=== PATIENT | male | born 1940 | race Caucasian/White ===

== ENCOUNTER 2016-07-05 17:31 | Inpatient (IN) | payer OTHER ==
[~2016-07-05] VITALS: Ht 175.3 cm; Wt 58.3 kg
--- NOTE | 2016-07-05 18:28 | DIAGNOSTIC IMAGING REPORT ---
PROCEDURE: XR TIBIA AND FIBULA - RIGHT INDICATION: TRAUMA/INJURY TECHNIQUE: AP and lateral views. COMPARISON: None. FINDINGS: Overlying splint obscures some of the detail. There is a comminuted spiral oblique fracture of the mid and distal tibia which extends towards the tibial plafond. This is associated with one bone width of lateral and anterior displacement, and moderate valgus angulation. There is a severely comminuted oblique fracture of the left proximal fibular shaft with moderate displacement, and anterior valgus angulation. IMPRESSION: 1. Severely comminuted and displaced fractures of the right tibia and fibular shafts.
--- NOTE | 2016-07-05 20:12 | ED ORDER SUMMARY ---
..... Patient: GUILLERMO LENNON OrderSheet [facility] VisitID: [id number] [place] [address] 75y, M Registration Date/Time: 07/05/2016 ORDER SHEET Weight: 55.3 kg (stated) Allergies: Azithromycin, Cinacalcet HCl, Cipro, Clarithromycin, Erythromycin, Levofloxacin, Linezolid, Neomycin Sulfate, Polymyxin B Sulfate, Sulfamethoxazole, Trimethoprim GENERAL ORDERS: Tibia/Fibula Right Urgent (18:06 07/05/2016 Lonnie HARDY) (Ack 18:08 NHouse ER Tech1) (18:19 EHassan R.N.) CBC w Diff Urgent (18:06 07/05/2016 Lonnie HARDY) (Ack 18:08 NHouse ER Tech1) (18:19 EHassaalli R.N.) CMP Urgent (18:06 07/05/2016 Lonnie HARDY) (Ack 18:08 NHouse ER Tech1) (18:19 EHassan R.N.) Splint (LE) (Right) (Che) (Fiberglass) (19:09 07/05/2016 Lonnie HARDY) (Ack 19:47 AMcQuoid ER Tech1) (20:14 AMcQuoid ER Tech1) EKG - ER Stat (19:10 07/05/2016 Lonnie HARDY) (19:20 BHARGAVassaalli R.N.) PT with INR Urgent (20:12 07/05/2016 Lonnie HARDY) (20:14 AMcQuoid ER Tech1) MEDICATION ORDERS: IV FLUIDS: IV NS : initial bolus 500 mL (1000 mL/hr), then 100 mL/hr (NOW) (18:05 07/05/2016 Lonnie HARDY) (18:55 BHARGAVassaalli R.N.) Dilaudid IV 1 mg (HIGH ALERT MEDICATION, NOW) (18:05 07/05/2016 Lonnie HARDY) (18:18 BHARGAVassaalli R.N.) Dilaudid IV 1 mg (HIGH ALERT MEDICATION, NOW) (18:57 07/05/2016 Lonnie HARDY) (19:04 Deedee R.N.) Dilaudid IV 2 mg (HIGH ALERT MEDICATION, NOW) (19:34 07/05/2016 Lonnie HARDY) (19:42 Deedee Lei) Dilaudid IV 1 mg (HIGH ALERT MEDICATION, NOW) (20:05 07/05/2016 Lonnie HARDY) (20:16 Deedee Lei) ORDER SHEET NOTES: [Electronically signed by Tami Moyer R.N. (21:31 07/05/2016)] [Electronically signed by Tami Moyer R.N. (22:35 07/05/2016)] [Electronically signed by Tami Moyer R.N. (22:41 07/05/2016)] [Electronically signed by Tami Moyer R.N. (22:42 07/05/2016)] [Electronically signed by Tami Moyer R.N. (22:44 07/05/2016)] [Electronically signed by Yuridia Gonzalez MD (08:16 07/07/2016)] [Electronically locked/signed by Tami Moyer R.N. (21:31 07/05/2016)]
--- NOTE | 2016-07-05 20:12 | ED NURSING NOTES ---
Clinical Report - Nurses [facility] [address] [place] [address] 07/05/2016 17:33 Patient: NGHIA LENNON TRIAGE Weight: 55.3 kg stated. Height/Length: 68 inches Per Patient. BMI: 18.5. --18:11 Tami Moyer R.N. Medications Aspirin 81 mg, daily. AzaTHIOprine Oral. Calcium Acetate Oral. Cholecalciferol Oral. Clobetasol Propionate External. Enalapril Maleate Oral. Isosorbide Dinitrate Sublingual. Latanoprost Ophthalmic. Levothroid Oral. Metoprolol Succinate Oral. Nitroglycerin Translingual. Omeprazole Oral. Ondansetron HCl Oral. OxyCODONE HCl Oral 5 mg, 6 hrs as needed. PredniSONE Oral 5 mg, daily. 1 Oral. Pt not clear of all meds that he's on. Reglan Oral. Rosuvastatin Calcium Oral. Tacrolimus Oral. Tamsulosin HCl Oral. Triamcinolone Acetonide External. --18:08 Tami Moyer R.N. Dronabinol Oral (Capsule 2.5 mg), bid. --19:10 Tami Moyer R.N. Torsemide Oral (Tablet 20 mg) 2 tablets, daily. --19:10 Tami Moyer R.N. Gabapentin Oral 100 mg, daily. --19:11 Tami Moyer R.N. Tacrolimus Oral (Capsule 0.5 mg) 1 capsule, bid. --19:13 Tami Moyer R.N. AzaTHIOprine Oral (Tablet 50 mg) 1 tablet, daily. --19:14 Tami Moyer R.N. AmLODIPine Besylate Oral (Tablet 5 mg), 2x a day. --19:14 Tami Moyer R.N. Finasteride Oral 5 mg, daily. --19:15 Tami Moyer R.N. Furosemide Oral 20 mg, daily as needed. --19:16 Moyer, Tami, R.N. Carvedilol Oral (Tablet 6.25 mg) 1 tablet, bid. --19:17 Tami Moyer R.N. Plus Iron Oral 27 mg, daily. --19:18 Tami Moyer R.N. Cranberry Oral 4200mg, daily. --19:19 Tami Moyer R.N. Prevagen Oral. --19:19 Tami Moyer R.N. The following entry was struck and corrected by Tami Moyer R.N., 19:12 (07/05/16) Reason for correction - other(correction). <<STRICKEN ENTRY-- OxyCODONE HCl Oral. --18:08 Tami Moyer R.N. --END STRIKE>> The following entry was struck and corrected by Tami Moyer R.N., 19:11 (07/05/16) Reason for correction - other(correction). <<STRICKEN ENTRY-- PredniSONE Oral. --18:08 Tami Moyer R.N. --END STRIKE>>. Medication/allergy information source: the patient. --18:48 Tami Moyer R.N. Allergies Azithromycin. Cinacalcet HCl. Cipro. Clarithromycin. Erythromycin. Levofloxacin. Linezolid. Neomycin Sulfate. Polymyxin B Sulfate. Sulfamethoxazole. Trimethoprim. --18:08 Tami Moyer R.N. PROBLEMS: Laceration. Contusion. Cellulitis. Kidney Transplant. Angina. Peripheral Neuropathy. Degenerative Joint Disease. Heart Transplant. Hyperkalemia. Immunizations. Basal cell cancer of right arm. Hyperlipidemia. Chronic pain. Chronic Pain. Hypertension. --18:09 Tami Moyer R.N. ADDITIONAL SURGERIES: Cholecystectomy. Gallbladder Surgery. Heart Transplant. Kidney Transplant. Prostatectomy. --18:09 Tami Moyer R.N. Major Trauma History Triage time 1750 PM. Arrived by private vehicle. Historian: patient and family. Acuity: LEVEL 2. Mechanism of injury: FALL while walking and landed on a concrete surface; tripped. Location of injuries: right leg. Happened 2 hours. No gunshot wound or stab wound. Trauma activation: Modified Trauma Activation. Pre-hospital notification of patient arrival was not received. as per prototcol. PAST MEDICAL HX: Tetanus status: up-to-date. SOCIAL HX: Former smoker, end date 1983. Occasional alcohol use. No drug use. No recent travel. Patient is retired. No known contact with a sick individual. ( Pt and daughter state walking down the street this afternoon at around 5pm and tripped and fell, pt denies hitting his head or any part of his body, pt states "it snapped but did not hit any sidewalk". Pt wheeled into the ED as per daughter pt was lifted by to the car took a oxy 5 mg before arriving to ED.). Identification band on patient. FALL RISK ASSESSMENT: Fall risk assessment completed. No fall risk identified. NUTRITIONAL RISK ASSESSMENT: The nutritional risk assessment revealed no deficiencies. The nutritional risk assessment revealed no deficiencies. FUNCTIONAL ASSESSMENT: Functional assessment: no impairments noted. Functional assessment: no impairments noted. LEARNING NEEDS ASSESSMENT: The learning needs assessment revealed no barriers. SKIN INTEGRITY ASSESSMENT: Skin integrity risk assessment completed. No skin integrity risk identified. --18:48 Tami Moyer R.N. Primary Survey: Alert. No acute distress. Airway patent. Breathing spontaneous. Pulses diminished. Pulses: right popliteal 1+, left popliteal 3+, right dorsalis pedis 2+, right posterior tibial 1+ and left posterior tibial 3+. Skin color within normal limits and warm and dry to touch. Pupillary exam: pupils are equal, round, and reactive to light. SEPSIS SCREEN: Sepsis Screen. Negative (no infection suspected/documented). --18:48 Tami Moyer R.N. 17:52 07/05/16. BP: 117/77 (small adult cuff) taken on the left arm, via an automated monitor, while sitting. HR: 71. RR: 18. O2 saturation: 97% on room air. Temp: 98.3 F (oral). Pain level now: 11/22. --18:48 Tami Moyer R.N. PHYSICAL ASSESSMENT Secondary Survey: GENERAL / NEURO / PSYCH: Alert. Oriented X 4. Appears in pain. HEENT: Head exam within normal limits. Facial exam within normal limits. Eye exam within normal limits. Ear exam within normal limits. Mouth within normal limits upon inspection. Neck exam within normal limits. RESPIRATORY: Respirations not labored. Decreased breath sounds in the bases bilaterally. Breath sounds within normal limits. CHEST / CVS: Chest exam within normal limits. Normal sinus rhythm noted. Pulses: right popliteal 1+, right dorsalis pedis 1+ and right posterior tibial 1+. Capillary refill is greater than 4 seconds. ABD / PELVIS / GI / : Abdomen soft and nontender. Pelvis is stable. EXTREMITIES: Sensory deficit over the right foot, right great toe, right second toe, right third toe, right fourth toe and right fifth toe. SKIN: Skin color pale. --18:53 Tami Moyer R.N. 18:00 07/05/16. BP: 98/73. HR: 67. RR: 15. O2 saturation: 98% on room air. Pain level now: 11/22. --18:53 Tami Moyer R.N. EXTREMITIES: ( Pt noted to have his tib/fib dangling, stabilized with a splinter prior to pt lifted to stretcher safely. Audible Doppler pulses, noted that cap refill is greater than 3. Will monitor). --18:55 Tami Moyer R.N. NURSING PROGRESS NOTES 17:53 07/05/2016 Site #1 started via IV in the right antecubital space with an 20g angiocath; one attempt. Blood drawn: rainbow set. Labeled in the presence of the patient and sent to the lab. --18:18 Tami Moyer R.N. 18:18 07/05/2016 Dilaudid (HYDROmorphone HCl PF) IVP 1 mg given over 1 minute(s) via site #1. Allergies verified, confirmed 5 rights and sedative warning given to the patient and patient's family. IV patency established. IV site checked: no pain, redness, or swelling. IV flushed thoroughly pre- and post-medication administration. IVP given by RN. --18:18 Tami Moyer R.N. 18:30 07/05/2016 Started bag #1 1000 mL IV Fluids IV NS (Saline); at 500 mL/hr over 1 hour(s) via site #1 via IV pump. Allergies verified and confirmed 5 rights. IV patency established. IV site checked: no pain, redness, or swelling. IV flushed thoroughly pre- and post-medication administration. --18:55 Tami Moyer R.N. The initial plan of care for this patient has been created This plan of care was discussed with the patient. Patient ID band checked for patient name, birthdate and medical record number: patient confirmed. Blood samples drawn from the right antecubital space peripheral IV site by nurse per protocol ; labeled in presence of the patient and sent to lab: rainbow set. Reassurance given. Two patient identifiers checked. Call light placed in reach. Side rails up x 1. Bed placed in lowest position. Brakes of bed on. --19:03 Tami Moyer R.N. 19:03 07/05/16. BP: 121/83 (small adult cuff) taken on the right arm, via an automated monitor, while lying. HR: 68. RR: 11. O2 saturation: 95% on nasal cannula at 2 liters/minute. Pain level now: 11/22. --19:04 Tami Moyer R.N. Cardiac rhythm: normal sinus rhythm. Valentin Coma Scale: 15- eyes open spontaneously (4); best verbal response- oriented x 4 (5); best motor response- obeys commands (6). --19:04 Tami Moyer R.N. 19:04 07/05/2016 Dilaudid (HYDROmorphone HCl PF) IVP 1 mg given over 30 second(s) via site #1. Allergies verified, confirmed 5 rights and sedative warning given to the patient and patient's family. IV patency established. IV site checked: no pain, redness, or swelling. IV flushed thoroughly pre- and post-medication administration. IVP given by RN. --19:04 Tami Moyer R.N. 18:30 07/05/16. BP: 100/74 (small adult cuff) taken on the left arm, via an automated monitor, while lying. HR: 68. RR: 14. O2 saturation: 99% on nasal cannula at 2 liters/minute. Temp: 98.8 F (oral). Pain level now: 11/22. --19:07 Tami Moyer R.N. Cardiac rhythm: normal sinus rhythm. feed mill tender, pulse oximeter and NIBP monitor placed on patient; monitor alarms on. Reassurance given. Reassessment after fluids administered and medication administered. He is calm and has had no adverse reaction. Overall patient status is the same- he states feels the same. --19:07 Tami Moyer R.N. ( Pt family and nghia would like to be transfer to "where my docs are at" Dr. Gonzalez aware. Dilaudid given as ordered.). --19:08 Tami Moyer R.N. 18:55 07/05/2016 Dilaudid IVP Response: no adverse reaction symptoms are the same. The patient feels the same. --19:20 Tami Moyer R.N. 19:05 07/05/2016 IV Fluids IV NS via IV site #1 Rate Changed: bag #1 decreased to 100 mL/hr via IV pump. IV patency established. IV site checked: no pain, redness, or swelling. IV flushed thoroughly. Confirmed 5 Rights. --19:20 Tami Moyer R.N. 19:20 07/05/2016 Dilaudid IVP Response: no adverse reaction symptoms are the same. The patient feels the same. --19:20 Tami Moyer R.N. 19:42 07/05/2016 Dilaudid (HYDROmorphone HCl PF) IVP 2 mg given over 1 minute(s) via site #1. Allergies verified, confirmed 5 rights and sedative warning given to the patient and patient's family. IV patency established. IV site checked: no pain, redness, or swelling. IV flushed thoroughly pre- and post-medication administration. IVP given by RN. --19:42 Tami Moyer R.N. 20:02 07/05/2016 Dilaudid IVP Response: no adverse reaction symptoms are the same. The patient feels the same. --20:17 Tami Moyer R.N. 20:06 07/05/2016 Dilaudid (HYDROmorphone HCl PF) IVP 1 mg given over 30 second(s) via site #1. Allergies verified, confirmed 5 rights and sedative warning given to the patient and patient's family. IV patency established. IV site checked: no pain, redness, or swelling. IV flushed thoroughly pre- and post-medication administration. IVP given by RN. --20:16 Tami Moyer R.N. 20:17 07/05/2016 Site #1 reassessed; patent, infusing well and no signs of infection or infiltration. Good blood return present. --20:17 Tami Moyer R.N. Cardiac rhythm: normal sinus rhythm. Reassurance given. Reassessment after oxygen and fluids administered. He has had no adverse reaction. Overall patient status is the same- he states feels better. ( Right leg stabilized with a Che splint, pt tolerated well with pain meds on board. VSS. O2 infusing, now eating. Pt opted to stay for surgery in the AM. Waiting on bed assignment. Family at bedside and updated. Comfort provided and emotional support). Call light placed in reach. Side rails up x 1. --20:19 Tami Moyer R.N. 20:17 07/05/16. BP: 128/59. HR: 69. RR: 14. O2 saturation: 98% on nasal cannula at 2 liters/minute. Pain level now: 08/22. --20:19 Tami Moyer R.N. 20:45 07/05/2016 Site #1 reassessed; patent, infusing well and no signs of infection or infiltration. Good blood return present. --20:45 Tami Moyer R.N. 20:43 07/05/16. BP: 99/53 (small adult cuff) taken on the left arm, via an automated monitor, while lying. HR: 66. RR: 13. O2 saturation: 95% on nasal cannula at 2 liters/minute. Temp: 98.8 F. Pain level now: 10/23. --20:48 Tami Moyer R.N. Reassessment after oxygen and fluids administered and medication administered. He is calm and has had no adverse reaction. Overall patient status is improved- he states feels the same. ( Audible doppler pulses, cap refill maintaining at 3). --20:48 Tami Moyer R.N. ( Called acute care x2 to give report, Vinh now is not taking the patient, waiting for Khushi RN to call back for report. Pt is stable and waiting). --21:12 Tami Moyer R.N. 21:26 07/05/2016 Dilaudid IVP Response: no adverse reaction symptoms have improved the patient feels better. --21:31 Tami Moyer R.N. 21:31 07/05/2016 IV Fluids IV NS Discontinued: bag #1 completed upon admission. Total amount infused: 1000 mL. IV patency established. IV site checked: no pain, redness, or swelling. IV flushed thoroughly. --21:31 Tami Moyer R.N. DISPOSITION / DISCHARGE Cardiac rhythm: normal sinus rhythm. Departure time: 2130 PM. Condition at departure: stable. The goals identified in the patient's plan of care were met. Transported via stretcher by transport team. Report was given to a nurse via a phone call. Report included patient's care, treatment, medications, reviewed medication reconcilliation, and condition (including any recent changes or anticipated changes). All questions were answered. Report was acknowledged and care was transferred. (ALINA Urban). --21:30 Tami Moyer R.N. 21:15 07/05/16. BP: 102/58. HR: 70. RR: 16. O2 saturation: 96% on nasal cannula at 2 liters/minute. Temp: 98.8 F (oral). Pain level now: 09/22. --21:30 Tami Moyer R.N. Locked/Released at 07/05/2016 22:44 by Tami Moyer R.N.
--- NOTE | 2016-07-05 20:12 | ED ORDER SUMMARY ---
..... Patient: GUILLERMO LENNON OrderSheet [facility] VisitID: [id number] [place] [address] 75y, M Registration Date/Time: 07/05/2016 ORDER SHEET Weight: 55.3 kg (stated) Allergies: Azithromycin, Cinacalcet HCl, Cipro, Clarithromycin, Erythromycin, Levofloxacin, Linezolid, Neomycin Sulfate, Polymyxin B Sulfate, Sulfamethoxazole, Trimethoprim GENERAL ORDERS: Tibia/Fibula Right Urgent (18:06 07/05/2016 Lonnie HARDY) (Ack 18:08 NHouse ER Tech1) (18:19 EHassan R.N.) CBC w Diff Urgent (18:06 07/05/2016 Lonnie HARDY) (Ack 18:08 NHouse ER Tech1) (18:19 EHassaalli R.N.) CMP Urgent (18:06 07/05/2016 Lonnie HARDY) (Ack 18:08 NHouse ER Tech1) (18:19 EHassan R.N.) Splint (LE) (Right) (Che) (Fiberglass) (19:09 07/05/2016 Lonnie HARDY) (Ack 19:47 AMcQuoid ER Tech1) (20:14 AMcQuoid ER Tech1) EKG - ER Stat (19:10 07/05/2016 Lonnie HARDY) (19:20 BHARGAVassaalli R.N.) PT with INR Urgent (20:12 07/05/2016 Lonnie HARDY) (20:14 AMcQuoid ER Tech1) MEDICATION ORDERS: IV FLUIDS: IV NS : initial bolus 500 mL (1000 mL/hr), then 100 mL/hr (NOW) (18:05 07/05/2016 Lonnie HARDY) (18:55 BHARGAVassaalli R.N.) Dilaudid IV 1 mg (HIGH ALERT MEDICATION, NOW) (18:05 07/05/2016 Lonnie HARDY) (18:18 BHARGAVassaalli R.N.) Dilaudid IV 1 mg (HIGH ALERT MEDICATION, NOW) (18:57 07/05/2016 Lonnie HARDY) (19:04 Deedee R.N.) Dilaudid IV 2 mg (HIGH ALERT MEDICATION, NOW) (19:34 07/05/2016 Lonnie HARDY) (19:42 Deedee Lei) Dilaudid IV 1 mg (HIGH ALERT MEDICATION, NOW) (20:05 07/05/2016 Lonnie HARDY) (20:16 Deedee Lei) ORDER SHEET NOTES: [Electronically signed by Tami Moyer R.N. (21:31 07/05/2016)] [Electronically signed by Tami Moyer R.N. (22:35 07/05/2016)] [Electronically signed by Tami Moyer R.N. (22:41 07/05/2016)] [Electronically signed by Tami Moyer R.N. (22:42 07/05/2016)] [Electronically signed by Tami Moyer R.N. (22:44 07/05/2016)] [Electronically signed by Yuridia Gonzalez MD (08:16 07/07/2016)] [Electronically locked/signed by Tami Moyer R.N. (21:31 07/05/2016)]
--- NOTE | 2016-07-05 20:12 | ED CLINICAL REPORT ---
Clinical Report - Physicians/Mid Levels [facility] [address] [place] [address] 07/05/2016 17:33 Patient: GUILLERMO LENNON Time Seen: 17:54. Arrived- By private vehicle. Historian- patient. HISTORY OF PRESENT ILLNESS Chief Complaint: Injury to right leg. The injury happened about 2 hours ago. Fell (patient was walking down the sidewalk when he tripped and fell. However he states he did not strike his leg on anything, but that the leg snapped as his toe caught on the sidewalk and he was going down. Patient denies any other injuries.). Occurred on a street. Patient is experiencing severe pain. No other injury. REVIEW OF SYSTEMS The patient complains of pain on weight bearing. He cannot bear weight. He has had swelling. No tingling, weakness, numbness, suspected foreign body or skin laceration. All systems otherwise negative, except as recorded above. PAST HISTORY Problems: Near Syncope. Tetanus Status. Kidney Transplant. Angina. Peripheral Neuropathy. Degenerative Joint Disease. Heart Transplant. Hyperkalemia. Immunizations. Basal cell cancer of right arm. Hyperlipidemia. Chronic Pain. Hypertension. Additional Surgeries: Cholecystectomy. Gallbladder Surgery. Heart Transplant. Prostatectomy. Medications: Prevagen Oral. Cranberry Oral 4200mg, daily. Plus Iron Oral 27 mg, daily. Carvedilol Oral (Tablet 6.25 mg) 1 tablet, bid. Furosemide Oral 20 mg, daily as needed. Finasteride Oral 5 mg, daily. AmLODIPine Besylate Oral (Tablet 5 mg), 2x a day. AzaTHIOprine Oral (Tablet 50 mg) 1 tablet, daily. Tacrolimus Oral (Capsule 0.5 mg) 1 capsule, bid. Gabapentin Oral 100 mg, daily. Torsemide Oral (Tablet 20 mg) 2 tablets, daily. Dronabinol Oral (Capsule 2.5 mg), bid. Aspirin 81 mg, daily. AzaTHIOprine Oral. Calcium Acetate Oral. Cholecalciferol Oral. Clobetasol Propionate External. Enalapril Maleate Oral. Isosorbide Dinitrate Sublingual. Latanoprost Ophthalmic. Levothroid Oral. Metoprolol Succinate Oral. Nitroglycerin Translingual. Omeprazole Oral. Ondansetron HCl Oral. OxyCODONE HCl Oral 5 mg, 6 hrs as needed. PredniSONE Oral 5 mg, daily. 1 Oral. Pt not clear of all meds that he's on. Reglan Oral. Rosuvastatin Calcium Oral. Tacrolimus Oral. Tamsulosin HCl Oral. Triamcinolone Acetonide External. Allergies: Azithromycin. Cinacalcet HCl. Cipro. Clarithromycin. Erythromycin. Levofloxacin. Linezolid. Neomycin Sulfate. Polymyxin B Sulfate. Sulfamethoxazole. Trimethoprim. SOCIAL HISTORY Former smoker. No alcohol use or drug use. ADDITIONAL NOTES The nursing notes have been reviewed. PHYSICAL EXAM Vital Signs: 07/05/2016 17:52 BP: 117/77. HR: 71. RR: 18. O2 saturation: 97%. Temp: 98.3 F. Pain level now: 10. Have been reviewed. Appearance: Alert. Oriented X3. No acute distress. (atient appears uncomfortable.). Head: Head atraumatic. Eyes: Pupils equal, round and reactive to light. Eyes normal inspection. ENT: Nose normal. Neck: Normal inspection. CVS: Pulses normal. Respiratory: No respiratory distress. Abdomen: No visible injury. Back: ROM normal. Skin: Skin intact. Skin warm and dry. Normal skin color. Normal skin turgor. Extremities: Right leg: severe tenderness and moderate swelling and deformity consistent with a tibia and fibula fracture located in the mid leg. Limited weight bearing secondary to pain. Neurovascular intact distally. (Patient has an unstable mid shaft of his tibia and fibula on the right.). No laceration, abrasion, ecchymosis, puncture wound or foreign body. (Patient has intact dorsalis pedis and posterior tibial pulses by Doppler.). Gait: Gait not tested due to pain. Neuro, Vascular and Tendons: Vascular status intact. Sensation intact. Motor intact. Tendon function intact. Neuro: Oriented X 3. No motor deficit. No sensory deficit. LABS, X-RAYS, AND EKG EKG: EKG time: (19:20). No acute process. Normal sinus rhythm. Rate: 67. Normal P waves. Normal GELA. RBBB. Left axis deviation. Normal ST and T waves, QT and QTc. Prior EKG unavailable. The study has been interpreted contemporaneously by me. The study has been independently viewed by me. The EKG appears to be a good tracing. I agree with and confirm the computer reading of the EKG. Rt Tib/Fib X-ray: Soft tissues normal. Joint spaces normal. No air in the soft tissue or foreign body. Moderately displaced, comminuted fracture of the mid right tibia. No open fracture of the right tibia. Comminuted fracture of the mid right fibula. No open fracture of the right fibula. Views: AP and lateral. Technique: good. The X-rays were independently viewed by me and interpreted contemporaneously by me. Prior films were not available for comparison. Laboratory Tests: CBC w Diff: (POLLO: 07/05/2016 18:50) ( MsgRcvd 07/05/2016 19:30) Final results Test Result Flag Units (Reference) WHITE BLOOD COUNT 14.3 H K/uL (4.5-11.5) RED BLOOD COUNT 4.25 L M/uL (4.50-5.90) HEMOGLOBIN 12.7 L gm/dL (13.5-17.5) HEMATOCRIT 38.2 L % (41.0-53.0) MEAN CELL VOLUME 90 fL (80-100) MEAN CORPUSCULAR HGB 30 pg (26-34) MEAN CORPUSCULAR HGB CONC 33 g/dL (31-37) RED CELL DISTRIBUTION WIDTH 14.6 % (11.6-14.8) PLATELET COUNT 321 K/uL (150-400) NEUTROPHIL % 83.3 H % (50-75) LYMPH % 13.4 L % (25-40) MONO % 3.0 % (3-14) EOSINOPHIL % 0.1 % (0-4) BASOPHIL % 0.2 % (0-2) CMP: (POLLO: 07/05/2016 18:50) ( MsgRcvd 07/05/2016 19:38) Final results Test Result Flag Units (Reference) GLUCOSE 156 H mg/dL (70-110) BUN 63 H mg/dL (7-18) CREATININE 2.5 H mg/dL (0.6-1.3) Estimated GFR 27.04 mL/min Estimated GFR- 32.77 mL/min Note: Persistent reduction over 3 months in eGFR<60 mL/min/1.73 m2 defines CKD. Patients with eGFR values>=60 mL/min/1.73 m2 may also have CKD if evidence ofpersistent proteinuria. Additional information may be foundat [email or web address]. SODIUM 134 L mmol/L (136-145) POTASSIUM 4.5 mmol/L (3.5-5.1) CHLORIDE 96 L mmol/L (98-107) CARBON DIOXIDE 26 mmol/L (21-32) CALCIUM 7.9 L mg/dL (8.5-10.1) TOTAL PROTEIN 8.0 g/dL (6.4-8.2) ALBUMIN 3.2 L g/dL (3.3-5.0) BILIRUBIN, TOTAL 0.9 mg/dL (0.0-1.0) ALKALINE PHOSPHATASE 87 U/L (46-116) AST (SGOT) 20 U/L (15-37) ALT (SGPT) 24 U/L (12-78) . Pulse Oximetry: 07/05/2016 17:52 O2 saturation: 97%. (FIO2 - room air). Interpretation: normal. PROGRESS AND PROCEDURES Splint Application: Short leg and stirrup fiberglass splint applied to right foot, ankle and lower leg. Splint applied by tech with direct supervision by me and the ED physician. Reassessed extremity following splint application. Neurovascular intact. Course of Care: The patient was evaluated by me immediately upon arrival in the emergency department. I did place him in a posterior mold splint initially just to stabilize his leg, and to maintain his intact neurovascular status. The patient was found to have a severe midshaft fracture of both bones of hislower leg, and as such I did speak with Dr. Gustafson, who was on-call for orthopedics. He did state that he would be able to fix thefracture operatively, but he would like the patient to be admitted to the hospitalist service, given his extensive medical history. The films were made available for Dr. Gustafson to view. Dr. Mc did agree to admit the patient primarily. Patient was given doses of Dilaudid IV. Once the x-ray was done a bulky Che splint was placed. Patient did have concerns that he is a Religion and does not want to receive blood during surgery, and requested that I speak with the surgeon to make sure that the surgeon felt comfortable with this. I did speak with Dr. Velazquez about it and he stated he would feel completely comfortable. Discussed case with health care provider (Janay/antony). Reviewed test results and need for additional work-up. Agreed upon treatment plan and decision to admit. Health care provider will see patient in hospital. Discussed case with hospitalist, (Jesusita). Reviewed test results and need for additional work-up. Agreed upon treatment plan and decision to admit. Health care provider will see patient in hospital. Patient and family counseled in person regarding the patient's stable condition, test results, diagnosis and need for admission and surgery. Old medical records reviewed. Disposition: Admitted to Acute Care. Condition: stable and serious and improved. CLINICAL IMPRESSION Closed displaced spiral, comminuted fracture of the shaft of the right tibia. No angulated fracture of the tibia. Closed displaced spiral, comminuted fracture of the shaft of the right fibula. No intraarticular fracture of the fibula. (Electronically signed by Yuridia Gonzalez MD 07/07/2016 8:16)
[2016-07-05] MEDS ORDERED: ASPIRIN ADULT L81 M2 PO (21:37)
[2016-07-05] MEDS ORDERED: AZATHIOPRINE50 MG PO (21:38)
[2016-07-05] MEDS ORDERED: PHOSLO667 MG (21:39)
[2016-07-05] MEDS ORDERED: VITAMIN D2400 UNIT PO (21:40)
[2016-07-05] MEDS ORDERED: CLOBETASOL PRO0.051 (21:41)
[2016-07-05] MEDS ORDERED: ENALAPRIL MALE2.5 MG PO (21:42)
[2016-07-05] MEDS ORDERED: ISOSORBIDE DINI10 MG PO (21:43)
[2016-07-05 21:44] VITALS: BP 124/87
[2016-07-05] MEDS ORDERED: LATANOPROST0.005 % OP (21:44)
[2016-07-05] MEDS ORDERED: LEVOTHYROXINE112 MCG PO (21:44)
[2016-07-05] MEDS ORDERED: NITROSTAT0.4 MG SL (21:45)
[2016-07-05] MEDS ORDERED: METOPROLOL SUCC25 MG PO (21:45)
[2016-07-05] MEDS ORDERED: PRILOSEC20 MG (21:46)
[2016-07-05] MEDS ORDERED: ZOFRAN ODT4 MG PO (21:46)
[2016-07-05] MEDS ORDERED: ROXICODONE5 MG PO (21:47)
[2016-07-05] MEDS ORDERED: REGLAN10 MG PO (21:48)
[2016-07-05] MEDS ORDERED: MULTIVITAMIN1 TAB PO (21:48)
[2016-07-05] MEDS ORDERED: PREDNISONE5 MG PO (21:48)
[2016-07-05] MEDS ORDERED: CRESTOR5 MG (21:50)
[2016-07-05] MEDS ORDERED: PROGRAF5 MG (21:50)
[2016-07-05] MEDS ORDERED: TRIAMCINOLONE A0.13 (21:51)
[2016-07-05] MEDS ORDERED: TAMSULOSIN HCL0.4 MG PO (21:51)
[2016-07-05] MEDS ORDERED: DRONABINOL2.5 MG PO (21:52)
[2016-07-05] MEDS ORDERED: DEMADEX10 MG PO (21:52)
[2016-07-05] MEDS ORDERED: NEURONTIN100 MG PO (21:55)
[2016-07-05] MEDS ORDERED: GABAPENTIN400 MG PO (21:56)
[2016-07-05] MEDS ORDERED: PROGRAF0.5 MG PO (21:57)
[2016-07-05] MEDS ORDERED: FINASTERIDE5 MG PO (21:59)
[2016-07-05] MEDS ORDERED: AMLODIPINE BES2.5 MG PO (21:59)
[2016-07-05] MEDS ORDERED: FUROSEMIDE20 MG PO (22:00)
[2016-07-05] MEDS ORDERED: COREG6.25 MG PO (22:00)
[2016-07-05] MEDS ORDERED: PREVAGEN10 MG (22:02)
[2016-07-05] MEDS ORDERED: CRANBERRY PO (22:02)
--- NOTE | 2016-07-05 23:10 | Consultation Report ---
History Chief Complaint Right closed spiral tibia and fibula fxs. History of Present Illness 75 year old M Confucianism immunosupressed for heart transplant in and kidney btransplant in with neuropathy and peripheral vascular disease and hx of slow healing wounds on R foot with infection requiring unkown abx but not surgery sustained twisting injury to R leg at home in [place] where he lives with son and [id number] today. Fx was d"definitely" not open. Placed in well padded posterior and U short leg spint. X-rays show dislplaced comminued spiral distal 3rd tib fx with nondisplaced extension distally toward the plafond but not definitively into the joint, also has long spiral comminuted prox-mid 3rd fibula fx and significant artial calcifications. [facility] medical [facility] at [facility]. Has abx allergy but doesnt recall which. Denies hx of DM, MRSA, DVT/ PE. Denies tobacco use. Patient History 1. Fracture of right tibia and fibula Social History see HPI. Has 13 children. Is divorsed. Advance Directive Durable [employer] (Has advanced directive at ) Medications and Allergies Medications see hospitalist H&P Allergies Uncoded Allergies: Food Allergies: (Intermediate, Vomiting 07/05/16) PICKLES SINSPAR (Mild, Itching/pruritus 07/05/16) Med Allergies: NKA Review of Systems Constitutional Denies: Fever, Chills, Sweats, Weakness. ENT Other (cleft palate). Respiratory Dry. Denies: Cough, SOB w/exertion, Wheezing, Hemoptysis, Pleuritic Pain, Sputum. Cardiovascular Denies: Chest Pain, Palpitations, Orthopnea, PND, Edema, Light-headedness. Musculoskeletal Leg Pain. Denies: Neck Pain, Shoulder Pain, Arm Pain, Back Pain, Hand Pain, Foot Pain. Skin Denies: Rash, Lesions, Jaundice, Bruising. 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 Denies : Weakness, Incoordination, Confusion, Seizures. Physical Exam Vital Signs / I&Os Vital Signs Date Time Temp Pulse Resp B/P Pulse O2 O2 Flow FiO2 Ox Delivery Rate 07/05 2144 36.8 68 18 124/87 95 Nasal 1.0 Cannula General Appearance Alert, Oriented X3, Cooperative, No acute distress HEENT Atraumatic Lungs Normal air movement Abdomen Soft, No tenderness Extremities R short leg splint CDI., R toes pink & warm with 1 sec cap refill. Unable to palpate dorsalist pedis pulse. Skin No Rashes, No Breakdown, No Significant Lesions, no bleeding on splint skin intact to limits of exam but splint not completely removed. Neurological Fires B E&FHLs. Sensation absent to light touch R foot and toes at baseline per pt. Psych/Mental Status Mental status normal, Mood normal, Confused LAB Results Laboratory Tests 07/05 07/05 1850 1753 Chemistry Plasma Sodium (136 - 145 mmol/L) 134 Plasma Potassium (3.5 - 5.1 mmol/L) 4.5 Plasma Chloride (98 - 107 mmol/L) 96 CO2 (Enzymatic) (21 - 32 mmol/L) 26 BUN (7 - 18 mg/dL) 63 Creatinine (0.6 - 1.3 mg/dL) 2.5 Est GFR ( Amer) (mL/min) 32.77 Est GFR (Non-Af Amer) (mL/min) 27.04 Glucose (70 - 110 mg/dL) 156 Plasma Calcium (8.5 - 10.1 mg/dL) 7.9 Total Bilirubin (0.0 - 1.0 mg/dL) 0.9 AST (15 - 37 U/L) 20 ALT (12 - 78 U/L) 24 Alkaline Phosphatase (46 - 116 U/L) 87 Total Protein (6.4 - 8.2 g/dL) 8.0 Albumin (3.3 - 5.0 g/dL) 3.2 Coagulation INR (0.8 - 1.2) 1.1 Hematology WBC (4.5 - 11.5 K/uL) 14.3 RBC (4.50 - 5.90 M/uL) 4.25 Hgb (13.5 - 17.5 gm/dL) 12.7 Hct (41.0 - 53.0 %) 38.2 MCV (80 - 100 fL) 90 MCH (26 - 34 pg) 30 RDW (11.6 - 14.8 %) 14.6 Neut % (Auto) (50 - 75 %) 83.3 Lymph % (Auto) (25 - 40 %) 13.4 Peach % (Auto) (3 - 14 %) 3.0 Eos % (Auto) (0 - 4 %) 0.1 Baso % (Auto) (0 - 2 %) 0.2 Plt Count, EDTA (150 - 400 K/uL) 321 PUBS MCHC (31 - 37 g/dL) 33 Imaging see HPI Assessment and Plan Problem List 1. Fracture of right tibia and fibula Qualifiers Encounter type: initial encounter Fracture type: closed Qualified Code: S82.201A - Unspecified fracture of shaft of right tibia, initial encounter for closed fracture Onset Date 07/05/16 Status Acute Plan I recommend closed/percutaneous/open reduction and IM nail fixation R tibia fx to prevent mal-nonunion, need for long leg cast occult conversion to open fx with subsequent infection and limb or even life loss. Risks of surgery incuing but not limited to bleeding (pt will accept blood expanders but not transfusion) , infection, nerve injury, nonunion, DVT/PE/ and others. Will need medical clearance from Hospitalist to have surgery here tomorrow as patient desires, but if needed can be transfered to /[facility] for higher level of medical care including cardiac care. Consent signed, site marked, NPO p MN. Continuwe e spint, NWB and elevation above heart level. L knee high SHYLA & SCD but no pharmacologic anticoagulation pre-op to minimize risks of bleeding in surgery.
--- NOTE | 2016-07-06 01:40 | HISTORY AND PHYSICAL ---
ADMITTED: 07/05/2016 CHIEF COMPLAINT: 1. Pain in the right lower leg HISTORY OF PRESENT ILLNESS: The patient is a 75-year-old white male who had the misfortune of catching his right foot while walking in [place] this afternoon. This caused him to fall. He felt his right lower leg snap before he actually hit the ground. He had severe pain in the right lower extremity. His family was able to get him into a vehicle and brought him into the emergency department for evaluation. He showed a comminuted fracture of the right tibia and fibula. MEDICAL/SURGICAL HISTORY: Past medical history: Remarkable for hypertension, peripheral artery disease, hyperlipidemia, chronic kidney disease, immunosuppression with a history of heart transplant and kidney transplant. Other problems include thyroid hormone deficiency and prostate hypertrophy with bladder outflow obstruction issues. Past surgical history: Remarkable for a heart transplant done in 1988. He also has had a kidney transplant done around 2010. He has had a cholecystectomy as well. MEDICATIONS: Extensive and include: 1. Amlodipine 5 mg b.i.d. 2. Aspirin 81 mg daily. 3. Azathioprine 50 mg twice daily. 4. Calcium acetate, exact dose unknown. 5. Carvedilol 6.25 mg b.i.d. 6. Vitamin D, dose not known. 7. Dronabinol 2.5 mg strength b.i.d. 8. Finasteride 5 mg p.o. daily. 9. Furosemide 20 mg p.o. daily. 10. Gabapentin 100 mg p.o. daily. 11. Isosorbide dinitrate sublingual, dose unknown. 12. Latanoprost ophthalmic, dose unknown. 13. Levothyroxine 112 mcg daily. 14. Nitroglycerin 0.4 mg sublingual p.r.n. chest pain. 15. Omeprazole 20 mg p.o. b.i.d. before breakfast and before supper. 16. Ondansetron 4 mg p.o. every 8 hours p.r.n. nausea. 17. Oxycodone 5 mg strength 1 every 6 hours p.r.n. pain. 18. Prednisone 5 mg daily. 19. vitamins plus iron 1 daily. 20. Prevagen [id number]-fpp-[id number] 1 capsule or tablet daily. 21. Rosuvastatin 5 mg tablet 1/2 tablet at bedtime. 22. Tacrolimus 0.5 mg 1 b.i.d. 23. Tamsulosin 0.8 mg after supper. 24. The patient also uses clobetasol cream or triamcinolone cream on external skin rashes. ALLERGIES: INCLUDE: 1. AZITHROMYCIN. 2. CINACALCET HYDROCHLORIDE. 3. CIPRO. 4. CLARITHROMYCIN. 5. ERYTHROMYCIN. 6. CIPROFLOXACIN. 7. LEVOFLOXACIN. 8. NEOMYCIN SULFATE. 9. LINEZOLID. 10. POLYMYXIN AND TRIMETHOPRIM/SULFA. SOCIAL HISTORY: Indicates the patient is . Lives in [place] and is either living with or living very close to his daughter. He rarely drinks any alcohol. He did smoke for about 1 year in the 1980s, but has not smoked since. He does not use any other drugs. FAMILY HISTORY: Indicates parents of heart problems. Both were in their mid 80s. REVIEW OF SYSTEMS: HEENT is okay. Respiratory is okay with no major shortness of breath or cough recently. Cardiovascular is okay with no history of acute chest pain or IL and no pain recently. Gastrointestinal: Remarkable for some heartburn and stomach acid issues controlled with omeprazole. Genitourinary is remarkable for decreased urine flow and bladder outflow obstruction. The patient does self-catheterize 2 or 3 times per day. Musculoskeletal: Remarkable for fracture of the right lower leg, as noted above. Neurological: Remarkable for neuropathy pain in the feet with right foot worse than the left. Psychiatric has been okay. PHYSICAL EXAMINATION: GENERAL: Reveals the patient to be an elderly-appearing white male. VITAL SIGNS: Temperature is 98.3. Blood pressure is in the 124/87 range. Oxygen saturation is 95% on 1 liter per minute with supplemental oxygen. HEENT: Head is normal. Ear canals and tympanic membranes are normal. Eyes show normal extraocular movements. Fundi are not well seen. Nose and throat are clear. NECK: Supple without significant adenopathy. There are no carotid bruits. CHEST: Reveals I:E ratio to be about 1:1. There are some scattered rhonchi. There are no wheezes. There are no significant rales. HEART: Reveals normal S1 and S2 with a grade 1/6 systolic murmur along the left sternal border. ABDOMEN: Nontender with no organomegaly or mass. Bowel tones are normal. GENITALIA: Showed normal circumcised male with testes descended bilaterally. There is no evidence of hernia. RECTAL: Not done. EXTREMITIES: Show the right lower extremity to be immobilized in a posterior splint. Toes show decreased sensation on the right. Toes are warm. Toes on the left foot have normal sensation. Dorsalis pedis pulse was not able to be checked on the right. Dorsalis pedis pulses 1+ on the left. NEUROLOGIC: Reveals the patient to be alert and oriented x3. Cranial nerves are symmetric. Motor and sensory exams are grossly normal, except for the decreased sensation in the right foot. CODE STATUS: THE PATIENT IS WISHING TO BE A FULL CODE IF THERE IS A GOOD CHANCE HE IS GOING TO SURVIVE, and this seems to be the case currently. LAB/IMAGING: Show white blood cell count 14,300, hemoglobin is 12.7, hematocrit is 38.2, platelets are 324,000. Sodium is 134, potassium 4.5, chloride 96, CO2 of 26, glucose 156, creatinine 2.5, BUN 63. Total protein is 8. Albumin is 3.2, alkaline phosphatase is normal, SGOT is 20, SGPT is 24. PT/INR is 1.1. Chest x-ray is pending. EKG has been done, but tracing is not currently available. IMPRESSION/PLAN: 1. The patient has a fracture of the right tibia-fibula and will require most likely intramedullary rodding for best result. He has seen Dr. Gustafson, who has recommended this. The patient's situation is complicated by his heart transplant and renal function issues. His heart transplant and the length of time since when he received the transplant make him at significant risk for myocardial infarction. He and his family are aware of this. Since the treatment of the fracture is not a dire emergency, they would like to speak with their transplant doctor at the [facility] and see if they can possibly be transferred down to the [facility] or to another tertiary care center to have the surgery done so in case there are cardiac complications, treatment will be immediately available. This would be appropriate. Plan: The patient is admitted here primarily for stabilization and pain control and for the time being will remain nothing by mouth in case he and his family decide after speaking with his transplant doctor that it would be low risk and reasonable to proceed with the surgery here. This will depend agreement with Anesthesia and agreement with Dr. Peña, who will be the hospitalist tomorrow. 2. Other chronic problems include chronic renal insufficiency, hypothyroidism, hyperlipidemia, hypertension. These are all fairly stable presently. The patient will be given as many of his usual oral medications tonight, and then will wait on further medications until final decision is made regarding the surgery and whether to proceed. If not, then he will resume his usual oral medicines in the morning.
[2016-07-06 02:33] VITALS: BP 123/60
--- NOTE | 2016-07-06 06:03 | DIAGNOSTIC IMAGING REPORT ---
PROCEDURE: XR CHEST 1 VIEW INDICATION: Preop left tibia and fibular fractures. History of heart transplant. TECHNIQUE: Portable AP view (0520 hours). COMPARISON: Comparison made to chest x-rays on 10/15/2012, and 05/28/2007. FINDINGS: Status post mediastinotomy and reported heart transplant. Heart is of normal size. Prominence of the upper mediastinum remains unchanged. Lungs are clear. Thorax is normal. IMPRESSION: 1. Status post mediastinotomy (reported heart transplant). 2. Otherwise negative chest.
[2016-07-06 06:51] VITALS: BP 116/70
[2016-07-06 10:45] VITALS: BP 114/77
[2016-07-06 14:30] VITALS: BP 112/56
--- NOTE | 2016-07-06 15:31 | DISCHARGE SUMMARY ---
ADMIT DATE: 07/05/2016 DISCHARGE DATE: 07/06/2016 DISCHARGE DIAGNOSIS: 1. Right ankle spiral fracture HOSPITAL COURSE: This is a patient who was admitted and discharged the same day. He was transferred to [facility] with a right spiral fracture of the ankle and so for further information, please refer to the history and physical done by Dr. Josh Mc. DISCHARGE INSTRUCTIONS/MEDICATIONS: He is being transferred to [facility] to [facility] due to heart and kidney transplant that the patient had before.
--- NOTE | 2016-07-06 15:31 | DISCHARGE SUMMARY ---
ADMIT DATE: 07/05/2016 DISCHARGE DATE: 07/06/2016 DISCHARGE DIAGNOSIS: 1. Right ankle spiral fracture HOSPITAL COURSE: This is a patient who was admitted and discharged the same day. He was transferred to [facility] with a right spiral fracture of the ankle and so for further information, please refer to the history and physical done by Dr. Josh Mc. DISCHARGE INSTRUCTIONS/MEDICATIONS: He is being transferred to [facility] to [facility] due to heart and kidney transplant that the patient had before.
--- NOTE | 2016-07-07 08:16 | ED MED RECONCILIATION SUMMARY ---
Patient: GUILLERMO LENNON Medication Reconciliation Report [facility] VisitID: [id number] [place] [address] 75y, M Registration Date/Time: 07/05/2016 Weight: 55.3 kg Height/Length: 68 in. BMI: 18.5 ALLERGIES: Azithromycin, Cinacalcet HCl, Cipro, Clarithromycin, Erythromycin, Levofloxacin, Linezolid, Neomycin Sulfate, Polymyxin B Sulfate, Sulfamethoxazole, Trimethoprim The patient's Home Medications are listed below: THE FOLLOWING MEDICATIONS NEED TO BE RECONCILED: AmLODIPine Besylate Oral (5 mg), 2x a day Aspirin 81 mg, daily AzaTHIOprine Oral AzaTHIOprine Oral (50 mg) 1 tablet, daily Calcium Acetate Oral Carvedilol Oral (6.25 mg) 1 tablet, bid Cholecalciferol Oral Clobetasol Propionate External Cranberry Oral 4200mg, daily Dronabinol Oral (2.5 mg), bid Enalapril Maleate Oral Finasteride Oral 5 mg, daily Furosemide Oral 20 mg, daily Gabapentin Oral 100 mg, daily Isosorbide Dinitrate Sublingual Latanoprost Ophthalmic Levothroid Oral Metoprolol Succinate Oral Nitroglycerin Translingual Omeprazole Oral Ondansetron HCl Oral OxyCODONE HCl Oral 5 mg, 6 hrs PredniSONE Oral 5 mg, daily 1 Oral Plus Iron Oral 27 mg, daily Prevagen Oral Pt not clear of all meds that he's on Reglan Oral Rosuvastatin Calcium Oral Tacrolimus Oral Tacrolimus Oral (0.5 mg) 1 capsule, bid Tamsulosin HCl Oral Torsemide Oral (20 mg) 2 tablets, daily Triamcinolone Acetonide External The source(s) of the original Home Medication information: patient The following Medications were given to the patient in the Emergency Department: Dilaudid [IVP] IVP 1 mg, administered: 07/05/2016 6:18:00 PM IV NS IV Fluids bolus 0, then 500 mL/hr, administered: 07/05/2016 6:30:00 PM Dilaudid [IVP] IVP 1 mg, administered: 07/05/2016 7:04:00 PM Dilaudid [IVP] IVP 2 mg, administered: 07/05/2016 7:42:00 PM Dilaudid [IVP] IVP 1 mg, administered: 07/05/2016 8:06:00 PM The following Medications were prescribed to the patient: None.
--- NOTE | 2016-07-07 08:16 | ED MED RECONCILIATION SUMMARY ---
Patient: GUILLERMO LENNON Medication Reconciliation Report [facility] VisitID: [id number] [place] [address] 75y, M Registration Date/Time: 07/05/2016 Weight: 55.3 kg Height/Length: 68 in. BMI: 18.5 ALLERGIES: Azithromycin, Cinacalcet HCl, Cipro, Clarithromycin, Erythromycin, Levofloxacin, Linezolid, Neomycin Sulfate, Polymyxin B Sulfate, Sulfamethoxazole, Trimethoprim The patient's Home Medications are listed below: THE FOLLOWING MEDICATIONS NEED TO BE RECONCILED: AmLODIPine Besylate Oral (5 mg), 2x a day Aspirin 81 mg, daily AzaTHIOprine Oral AzaTHIOprine Oral (50 mg) 1 tablet, daily Calcium Acetate Oral Carvedilol Oral (6.25 mg) 1 tablet, bid Cholecalciferol Oral Clobetasol Propionate External Cranberry Oral 4200mg, daily Dronabinol Oral (2.5 mg), bid Enalapril Maleate Oral Finasteride Oral 5 mg, daily Furosemide Oral 20 mg, daily Gabapentin Oral 100 mg, daily Isosorbide Dinitrate Sublingual Latanoprost Ophthalmic Levothroid Oral Metoprolol Succinate Oral Nitroglycerin Translingual Omeprazole Oral Ondansetron HCl Oral OxyCODONE HCl Oral 5 mg, 6 hrs PredniSONE Oral 5 mg, daily 1 Oral Plus Iron Oral 27 mg, daily Prevagen Oral Pt not clear of all meds that he's on Reglan Oral Rosuvastatin Calcium Oral Tacrolimus Oral Tacrolimus Oral (0.5 mg) 1 capsule, bid Tamsulosin HCl Oral Torsemide Oral (20 mg) 2 tablets, daily Triamcinolone Acetonide External The source(s) of the original Home Medication information: patient The following Medications were given to the patient in the Emergency Department: Dilaudid [IVP] IVP 1 mg, administered: 07/05/2016 6:18:00 PM IV NS IV Fluids bolus 0, then 500 mL/hr, administered: 07/05/2016 6:30:00 PM Dilaudid [IVP] IVP 1 mg, administered: 07/05/2016 7:04:00 PM Dilaudid [IVP] IVP 2 mg, administered: 07/05/2016 7:42:00 PM Dilaudid [IVP] IVP 1 mg, administered: 07/05/2016 8:06:00 PM The following Medications were prescribed to the patient: None.
--- NOTE | 2016-07-07 08:16 | ED MAR SUMMARY ---
..... Medication Administration Record [facility] [address] [facility] [place] [address] Patient: GUILLERMO LENNON Visit ID: [id number] 75y, M Weight: 55.3 kg Height/Length: 68 in BMI: 18.5 ALLERGIES: Azithromycin, Cinacalcet HCl, Cipro, Clarithromycin, Erythromycin, Levofloxacin, Linezolid, Neomycin Sulfate, Polymyxin B Sulfate, Sulfamethoxazole, Trimethoprim Given 18:18 07/05/2016 Tami Moyer R.N. Medication Administered: DILAUDID [IVP] (HYDROMORPHONE HCL PF), Dose: 1 mg IVP over 1 minute(s), Site: #1 right AC. Medication Ordered: Dilaudid IV 1 mg (HIGH ALERT MEDICATION, NOW). Start 18:30 07/05/2016 Tami Moyer R.N., Stop 21:31 07/05/2016 Tami Moyer R.N. Medication Administered: IV NS (SALINE), Dose: IV Fluids over 1 hour(s), Rate: 500 mL/hr, Dispensed: 1000 mL bag, Site: #1 right AC. Medication Ordered: IV NS : initial bolus 500 mL (1000 mL/hr), then 100 mL/hr (NOW). Given 19:04 07/05/2016 Tami Moyer R.N. Medication Administered: DILAUDID [IVP] (HYDROMORPHONE HCL PF), Dose: 1 mg IVP over 30 second(s), Site: #1 right AC. Medication Ordered: Dilaudid IV 1 mg (HIGH ALERT MEDICATION, NOW). Given 19:42 07/05/2016 Tami Moyer R.N. Medication Administered: DILAUDID [IVP] (HYDROMORPHONE HCL PF), Dose: 2 mg IVP over 1 minute(s), Site: #1 right AC. Medication Ordered: Dilaudid IV 2 mg (HIGH ALERT MEDICATION, NOW). Given 20:06 07/05/2016 Tami Moyer R.N. Medication Administered: DILAUDID [IVP] (HYDROMORPHONE HCL PF), Dose: 1 mg IVP over 30 second(s), Site: #1 right AC. Medication Ordered: Dilaudid IV 1 mg (HIGH ALERT MEDICATION, NOW).
--- NOTE | 2016-07-07 08:16 | ED MAR SUMMARY ---
..... Medication Administration Record [facility] [address] [facility] [place] [address] Patient: GUILLERMO LENNON Visit ID: [id number] 75y, M Weight: 55.3 kg Height/Length: 68 in BMI: 18.5 ALLERGIES: Azithromycin, Cinacalcet HCl, Cipro, Clarithromycin, Erythromycin, Levofloxacin, Linezolid, Neomycin Sulfate, Polymyxin B Sulfate, Sulfamethoxazole, Trimethoprim Given 18:18 07/05/2016 Tami Moyer R.N. Medication Administered: DILAUDID [IVP] (HYDROMORPHONE HCL PF), Dose: 1 mg IVP over 1 minute(s), Site: #1 right AC. Medication Ordered: Dilaudid IV 1 mg (HIGH ALERT MEDICATION, NOW). Start 18:30 07/05/2016 Tami Moyer R.N., Stop 21:31 07/05/2016 Tami Moyer R.N. Medication Administered: IV NS (SALINE), Dose: IV Fluids over 1 hour(s), Rate: 500 mL/hr, Dispensed: 1000 mL bag, Site: #1 right AC. Medication Ordered: IV NS : initial bolus 500 mL (1000 mL/hr), then 100 mL/hr (NOW). Given 19:04 07/05/2016 Tami Moyer R.N. Medication Administered: DILAUDID [IVP] (HYDROMORPHONE HCL PF), Dose: 1 mg IVP over 30 second(s), Site: #1 right AC. Medication Ordered: Dilaudid IV 1 mg (HIGH ALERT MEDICATION, NOW). Given 19:42 07/05/2016 Tami Moyer R.N. Medication Administered: DILAUDID [IVP] (HYDROMORPHONE HCL PF), Dose: 2 mg IVP over 1 minute(s), Site: #1 right AC. Medication Ordered: Dilaudid IV 2 mg (HIGH ALERT MEDICATION, NOW). Given 20:06 07/05/2016 Tami Moyer R.N. Medication Administered: DILAUDID [IVP] (HYDROMORPHONE HCL PF), Dose: 1 mg IVP over 30 second(s), Site: #1 right AC. Medication Ordered: Dilaudid IV 1 mg (HIGH ALERT MEDICATION, NOW).
--- NOTE | 2016-07-07 08:16 | ED DISCHARGE INSTRUCTIONS ---
Patient: GUILLERMO LENNON General Instructions [facility] VisitID: [id number] [address] [place] [address] 75y, M Registration Date/Time: 07/05/2016 Closed displaced spiral, comminuted fracture of the shaft of the right tibia. No angulated fracture of the tibia. Closed displaced spiral, comminuted fracture of the shaft of the right fibula. No intraarticular fracture of the fibula. (Electronically signed by Yuridia Gonzalez MD 07/07/2016 8:16)
--- NOTE | 2016-07-07 08:16 | ED DISCHARGE INSTRUCTIONS ---
Patient: GUILLERMO LENNON General Instructions [facility] VisitID: [id number] [address] [place] [address] 75y, M Registration Date/Time: 07/05/2016 Closed displaced spiral, comminuted fracture of the shaft of the right tibia. No angulated fracture of the tibia. Closed displaced spiral, comminuted fracture of the shaft of the right fibula. No intraarticular fracture of the fibula. (Electronically signed by Yuridia Gonzalez MD 07/07/2016 8:16)
== END 2016-07-06 15:13 | disposition short-term general hospital (02) | DRG 563 ==
LOC: ED SRH 17:31 → TRANS SRH 20:17 → ACUTE2 SRH 21:30
PROVIDERS: ADMIT Emergency Medicine
PROC: 2W3QX1Z Immobilization of Right Lower Leg using Splint (ICD-10-PCS; principal; 2016-07-05)
DX: S82.241A Displaced spiral fracture of shaft of right tibia, initial encounter for closed fracture (principal); S82.441A Displaced spiral fracture of shaft of right fibula, initial encounter for closed fracture; W01.0XXA Fall on same level from slipping, tripping and stumbling without subsequent striking against object, initial encounter; Y92.480 Sidewalk as the place of occurrence of the external cause; Z94.1 Heart transplant status; Z94.0 Kidney transplant status; Y93.01 Activity, walking, marching and hiking; Y99.8 Other external cause status; I12.9 Hypertensive chronic kidney disease with stage 1 through stage 4 chronic kidney disease, or unspecified chronic kidney disease; N18.9 Chronic kidney disease, unspecified; G62.9 Polyneuropathy, unspecified